=== PATIENT | male | born 1940 | race Caucasian/White ===

== ENCOUNTER 2018-06-08 16:13 | Emergency (ER) | payer MEDICARE, BC ==
[~2018-06-08] VITALS: Ht 162.6 cm; Wt 73.5 kg
--- NOTE | 2018-06-08 17:01 | NUR ---
Patient discharged to home in stable conditon. Written and verbal after care instructions given to patient. Patient verbalizes understanding of instructions.
== END 2018-06-08 17:02 | disposition home or self-care (01) ==
LOC: ER 16:16
DX: H61.23 Impacted cerumen, bilateral (principal); I10 Essential (primary) hypertension; Z95.5 Presence of coronary angioplasty implant and graft
CPT/HCPCS: A4217; A4663

== ENCOUNTER 2023-06-10 15:37 | Inpatient (IN) | payer MEDICARE, BC ==
[~2023-06-10] VITALS: Ht 167.6 cm; Wt 79.4 kg
[2023-06-10] MEDS ORDERED: CEFTRIAXONE 2 G in IV DEXTROSE 5% 100 ML IV ONE (16:00)
[2023-06-10] MEDS ORDERED: IV NORMAL SALINE 1000 ML BAG IV ONE (16:00)
[2023-06-10] MEDS ORDERED: VANCOMYCIN IV 1,000 MG in IV DEXTROSE 5% 250 ML IV ONE (16:00)
[2023-06-10] MEDS ORDERED: DEXAMETHASONE SOD PHOSPHATE 4 MG INJ IV ONE (16:00)
[2023-06-10 17:56] LABS: BASOPHILS % (AUTO) 0.3 % (0.0-2.0); EOSINOPHILS # (AUTO) 0.1 K/uL (0.0-0.7); EOSINOPHILS % (AUTO) 1.4 % (0.0-7.0); HEMOGLOBIN 14.5 g/dL (12.5-16.3); LYMPHOCYTES # (AUTO) 0.6 K/uL (0.8-4.8); LYMPHOCYTES % (AUTO) 7.6 % (20.5-51.5); MEAN CORPUSCULAR HGB CONC 34 g/dL (32.5-36.3); MEAN CORPUSCULAR VOLUME 89.4 fL (73.0-96.2); MONOCYTES # (AUTO) 0.5 K/uL (0.1-1.30); MONOCYTES % (AUTO) 5.9 % (0.0-11.0); NEUTROPHILS % (AUTO) 84.8 % (38.5-71.5); PLATELET COUNT (AUTO) 172 K/uL (152-348); RED BLOOD CELL COUNT(AUTO) 4.82 MIL/uL (4.06-5.63); RED CELL DISTRIBUTION WIDTH 13.3 % (12.1-16.2); WHITE BLOOD COUNT (AUTO) 8.2 K/uL (3.6-10.2)
[2023-06-10 18:10] LABS: DIFFERENTIAL COMMENT 1
[2023-06-10 18:16] LABS: CALCIUM 9.2 mg/dL (8.5-10.1); CARBON DIOXIDE 25 mmol/L (21-32); CHLORIDE 103 mmol/L (98-107); ETHANOL < 3 MG/DL (0-10); GLUCOSE 121 mg/dL (74-106); POTASSIUM 4.3 mmol/L (3.5-5.1); SODIUM SERUM 137 mmol/L (136-145); UREA NITROGEN, BLOOD 22 mg/dL (7-18)
[2023-06-10 18:23] LABS: AMMONIA < 10 umol/L (11-32)
[2023-06-10 18:33] LABS: ALANINE AMINOTRANSFERASE 25 U/L (16-63); ALBUMIN 3.6 g/dL (3.4-5.0); ALKALINE PHOSPHATASE 92 U/L (50-136); ASPARTATE AMINOTRANSFERASE 14 U/L (15-37); BILIRUBIN,DIRECT 0.2 mg/dL (0.0-0.2); BILIRUBIN,TOTAL 0.5 mg/dL (0.2-1.0); TOTAL PROTEIN, SERUM 7.2 g/dL (6.4-8.2)
[2023-06-10 18:40] LABS: ACETAMINOPHEN < 2.0 ug/mL (10-30)
[2023-06-10] MEDS ORDERED: LIDOCAINE 2%-EPI 1:100,000 20 ML VIAL ONE ×2 (19:44→22:52)
[2023-06-10] MEDS ORDERED: AZITHROMYCIN IV 500 MG in IV DEXTROSE 5% 250 ML IV ONE (19:45)
[2023-06-10] MEDS ORDERED: LIDOCAINE 2%-EPI 1:100,000 20 ML VIAL IJ ONE ×2 (19:45→23:00)
[2023-06-10] MEDS ORDERED: IV LACTATED RINGERS SOLUTION 1,000 ML IV ONE (21:45)
[2023-06-10] MEDS ORDERED: CEFTRIAXONE /D5W 50ML IVPB **ER PYXIS IV ONE (21:49)
[2023-06-10] MEDS ORDERED: REMEDY ESSENTIAL ZINC PASTE 113 GM TP PRN (22:30)
[2023-06-10] MEDS ORDERED: ONDANSETRON 4 MG/2 ML VIAL IV PRN (22:30)
[2023-06-10] MEDS ORDERED: MAGNESIUM HYDROXIDE 30 ML LIQUID UDC PO PRN (22:30)
[2023-06-10] MEDS ORDERED: IV NS 1000 ML 1,000 ML IV PRN (22:30)
[2023-06-11 00:36] LABS: CSF PROTEIN 55 mg/dL (15-45)
[2023-06-11 00:40] LABS: CSF GLUCOSE 99 mg/dL (40-70)
[2023-06-11 00:53] LABS: CSF APPEARANCE CLEAR (CLEAR); CSF COLOR COLORLESS (COLORLESS); CSF TUBE NUMBER 1
[2023-06-11] MEDS ORDERED: ACETAMINOPHEN ES 500 MG TABLET ONE (02:16)
[2023-06-11] MEDS ORDERED: CIPROFLOXACIN HCL 250 MG TABLET ONE ×3 (02:17→02:28)
[2023-06-11 02:27] LABS: CSF WHITE BLOOD CELL COUNT 23 /cumm (0-5)
[2023-06-11] MEDS ORDERED: VANCOMYCIN IV 1,000 MG in IV DEXTROSE 5% 250 ML IV ONE (02:30)
[2023-06-11] MEDS ORDERED: ACYCLOVIR IV ONE (02:45)
[2023-06-11] MEDS ORDERED: DEXTROSE 5% IV ONE (02:45)
[2023-06-11] MEDS ORDERED: ACYCLOVIR 500 MG VIAL IV ONE (02:46)
[2023-06-11] MEDS ORDERED: VANCOMYCIN IV 200 ML ONE (03:46)
[2023-06-11 07:05] LABS: BASOPHILS % (AUTO) 0.4 % (0.0-2.0); EOSINOPHILS % (AUTO) 0.1 % (0.0-7.0); HEMATOCRIT 39.4 % (36.7-47.1); HEMOGLOBIN 13.1 g/dL (12.5-16.3); LYMPHOCYTES # (AUTO) 0.7 K/uL (0.8-4.8); LYMPHOCYTES % (AUTO) 7.7 % (20.5-51.5); MEAN CORPUSCULAR HGB CONC 33 g/dL (32.5-36.3); MEAN CORPUSCULAR VOLUME 90.2 fL (73.0-96.2); MONOCYTES # (AUTO) 0.6 K/uL (0.1-1.30); MONOCYTES % (AUTO) 7.6 % (0.0-11.0); NEUTROPHILS # (AUTO) 7.2 K/uL (1.8-8.9); NEUTROPHILS % (AUTO) 84.2 % (38.5-71.5); PLATELET COUNT (AUTO) 164 K/uL (152-348); RED BLOOD CELL COUNT(AUTO) 4.37 MIL/uL (4.06-5.63); RED CELL DISTRIBUTION WIDTH 13.6 % (12.1-16.2); WHITE BLOOD COUNT (AUTO) 8.5 K/uL (3.6-10.2)
[2023-06-11 07:18] LABS: DIFFERENTIAL COMMENT 1
[2023-06-11 07:21] LABS: CALCIUM 8.4 mg/dL (8.5-10.1); CARBON DIOXIDE 25 mmol/L (21-32); CHLORIDE 102 mmol/L (98-107); CREATININE 1.4 mg/dL (0.6-1.3); GLUCOSE 192 mg/dL (74-106); MAGNESIUM 1.7 mg/dL (1.8-2.4); PHOSPHOROUS 4.6 mg/dL (2.5-4.9); POTASSIUM 4.1 mmol/L (3.5-5.1); SODIUM SERUM 137 mmol/L (136-145); UREA NITROGEN, BLOOD 24 mg/dL (7-18)
[2023-06-11 08:00] VITALS: BP_SYST 135; BP_SYST 157; BP_DIAS 57; BP_DIAS 78; TEMP 100; TEMP 99.2
[2023-06-11] MEDS ORDERED: MAGNESIUM SULFATE/D5W 100 ML IV SCH (10:18)
[2023-06-11] MEDS: PANTOPRAZOLE SODIUM 40 MG VIAL IV SCH (10:33)
[2023-06-11] MEDS: CEFTRIAXONE 1 G in IV DEXTROSE 5% 50 ML IV SCH (10:34)
[2023-06-11 12:00] VITALS: BP 143/69; TEMP 100; TEMP 99.3
[2023-06-11 12:39] LABS: THYROID STIMULATING HORMONE 0.579 mIU/mL (0.358-3.740)
[2023-06-11 13:42] LABS: *BILIRUBIN,URIN NEGATIVE (NEGATIVE); *CLARITY,URINE CLEAR (CLEAR); *COLOR,URINE YELLOW (YELLOW); *KETONES,URINE NEGATIVE (NEGATIVE); *PROTEIN,URINE 1+ (NEGATIVE); *UROBILINOGEN,URINE 0.2 E.U./dl (NORMAL); LEUKOCYTE ESTERASE ,URINE NEGATIVE (NEGATIVE); NITRITE, URINE NEGATIVE (NEGATIVE); PH,URINE 5.5 (5.0-8.0); UGLUCOSE NEGATIVE (NEGATIVE)
[2023-06-11 13:45] LABS: *BLOOD, URINE TRACE (NEGATIVE)
[2023-06-11] MEDS ORDERED: ACYCLOVIR IV 500 MG in IV DEXTROSE 5% 100 ML IV SCH (14:00)
[2023-06-11 14:13] LABS: BACTERIA,URINE FEW /HPF (NONE SEEN); COARSE GRANULAR CASTS,URINE 0-3 /LPF; RBC,URINE 0-3 /HPF (0-3); SQUAMOUS EPITHELIAL CELL,UR FEW /HPF (NONE SEEN); WBC,URINE 0-3 /HPF (0-3)
[2023-06-11] MEDS ORDERED: DULO30CA2 PO (15:28)
[2023-06-11 15:44] VITALS: BP 127/55; TEMP 99.7
[2023-06-11 16:15] VITALS: O2SAT 98
[2023-06-11] MEDS: ACETAMINOPHEN 325 MG TABLET PO PRN (16:41)
[2023-06-11] MEDS: ENOXAPARIN SODIUM 40 MG/0.4 ML DISP.SYRIN SQ SCH (16:48)
[2023-06-11 20:06] VITALS: BP 134/64; TEMP 99.2; O2SAT 95
[2023-06-11] MEDS: ACYCLOVIR IV 500 MG in IV DEXTROSE 5% 100 ML IV SCH (20:08)
[2023-06-11] MEDS: IV D5 1/2 NS 1000 ML 1,000 ML IV PRN (20:08)
[2023-06-11 22:22] VITALS: O2SAT 98
[2023-06-12] MEDS: ACETAMINOPHEN 325 MG TABLET PO PRN ×2 (00:09→20:06)
[2023-06-12 00:17] VITALS: BP 146/68; TEMP 103; O2SAT 93
[2023-06-12 02:00] VITALS: TEMP 99.1
[2023-06-12 04:05] VITALS: BP 129/69; TEMP 99.7; O2SAT 97
[2023-06-12 08:03] LABS: BASOPHILS % (AUTO) 0.5 % (0.0-2.0); EOSINOPHILS % (AUTO) 0.3 % (0.0-7.0); HEMATOCRIT 37.7 % (36.7-47.1); HEMOGLOBIN 12.9 g/dL (12.5-16.3); LYMPHOCYTES # (AUTO) 1.5 K/uL (0.8-4.8); LYMPHOCYTES % (AUTO) 22.8 % (20.5-51.5); MEAN CORPUSCULAR HEMOGLOBIN 30.7 uug (23.8-33.4); MEAN CORPUSCULAR HGB CONC 34 g/dL (32.5-36.3); MEAN CORPUSCULAR VOLUME 89.4 fL (73.0-96.2); MONOCYTES # (AUTO) 0.8 K/uL (0.1-1.30); MONOCYTES % (AUTO) 12.7 % (0.0-11.0); NEUTROPHILS # (AUTO) 4.2 K/uL (1.8-8.9); NEUTROPHILS % (AUTO) 63.7 % (38.5-71.5); PLATELET COUNT (AUTO) 135 K/uL (152-348); RED BLOOD CELL COUNT(AUTO) 4.22 MIL/uL (4.06-5.63); RED CELL DISTRIBUTION WIDTH 13.6 % (12.1-16.2); WHITE BLOOD COUNT (AUTO) 6.6 K/uL (3.6-10.2)
[2023-06-12 08:39] LABS: ALANINE AMINOTRANSFERASE 35 U/L (16-63); ALBUMIN 2.9 g/dL (3.4-5.0); ALKALINE PHOSPHATASE 69 U/L (50-136); ASPARTATE AMINOTRANSFERASE 42 U/L (15-37); BILIRUBIN,TOTAL 0.3 mg/dL (0.2-1.0); CALCIUM 8.5 mg/dL (8.5-10.1); CARBON DIOXIDE 27 mmol/L (21-32); CHLORIDE 103 mmol/L (98-107); CREATININE 1.3 mg/dL (0.6-1.3); GLUCOSE 142 mg/dL (74-106); MAGNESIUM 2.4 mg/dL (1.8-2.4); NT-PRO BNP 248 pg/mL (0-125); PHOSPHOROUS 4.7 mg/dL (2.5-4.9); POTASSIUM 3.8 mmol/L (3.5-5.1); TOTAL PROTEIN, SERUM 6.2 g/dL (6.4-8.2); UREA NITROGEN, BLOOD 21 mg/dL (7-18)
[2023-06-12 08:50] LABS: SODIUM SERUM 139 mmol/L (136-145)
[2023-06-12 09:08] VITALS: BP 155/83; TEMP 99.2; O2SAT 94
[2023-06-12] MEDS: ACYCLOVIR IV 500 MG in IV DEXTROSE 5% 100 ML IV SCH ×2 (10:12→20:07)
[2023-06-12] MEDS: PANTOPRAZOLE SODIUM 40 MG VIAL IV SCH (10:12)
[2023-06-12] MEDS: DULOXETINE 30 MG CAPSULE.DR PO SCH (10:12)
[2023-06-12] MEDS: ENOXAPARIN SODIUM 40 MG/0.4 ML DISP.SYRIN SQ SCH (10:14)
[2023-06-12] MEDS: CEFTRIAXONE 1 G in IV DEXTROSE 5% 50 ML IV SCH (11:38)
[2023-06-12] MEDS: IV D5 1/2 NS 1000 ML 1,000 ML IV PRN (15:01)
[2023-06-12 20:00] VITALS: BP 145/65; TEMP 99; O2SAT 94
[2023-06-12] MEDS ORDERED: TOBRAMYCIN 0.3% OPHT DROP 5 ML BOTTLE ONE (23:17)
[2023-06-12] MEDS: TOBRAMYCIN 0.3% OPHT DROP 5 ML BOTTLE LEFTEYE SCH (23:26)
[2023-06-13] VITALS: BP 144/70; TEMP 98.5; O2SAT 94
[2023-06-13] MEDS: TOBRAMYCIN 0.3% OPHT DROP 5 ML BOTTLE LEFTEYE SCH ×3 (06:00→22:00)
[2023-06-13] MEDS: PANTOPRAZOLE SODIUM 40 MG TABLET.DR PO SCH (06:52)
[2023-06-13] MEDS: DULOXETINE 30 MG CAPSULE.DR PO SCH (08:38)
[2023-06-13] MEDS: ENOXAPARIN SODIUM 40 MG/0.4 ML DISP.SYRIN SQ SCH (08:40)
[2023-06-13] MEDS: ACYCLOVIR IV 500 MG in IV DEXTROSE 5% 100 ML IV SCH ×2 (09:07→21:15)
[2023-06-13 11:28] LABS: BASOPHILS % (AUTO) 0.5 % (0.0-2.0); EOSINOPHILS % (AUTO) 0.6 % (0.0-7.0); HEMATOCRIT 37.9 % (36.7-47.1); HEMOGLOBIN 12.7 g/dL (12.5-16.3); LYMPHOCYTES # (AUTO) 1.1 K/uL (0.8-4.8); LYMPHOCYTES % (AUTO) 22.8 % (20.5-51.5); MEAN CORPUSCULAR HGB CONC 34 g/dL (32.5-36.3); MEAN CORPUSCULAR VOLUME 89.7 fL (73.0-96.2); MONOCYTES # (AUTO) 0.5 K/uL (0.1-1.30); MONOCYTES % (AUTO) 10.9 % (0.0-11.0); NEUTROPHILS # (AUTO) 3.3 K/uL (1.8-8.9); NEUTROPHILS % (AUTO) 65.2 % (38.5-71.5); PLATELET COUNT (AUTO) 131 K/uL (152-348); RED BLOOD CELL COUNT(AUTO) 4.23 MIL/uL (4.06-5.63); RED CELL DISTRIBUTION WIDTH 13.5 % (12.1-16.2)
[2023-06-13 11:42] LABS: ALANINE AMINOTRANSFERASE 33 U/L (16-63); ALBUMIN 2.8 g/dL (3.4-5.0); ALKALINE PHOSPHATASE 71 U/L (50-136); ASPARTATE AMINOTRANSFERASE 40 U/L (15-37); BILIRUBIN,TOTAL 0.2 mg/dL (0.2-1.0); CALCIUM 8.3 mg/dL (8.5-10.1); CARBON DIOXIDE 28 mmol/L (21-32); CHLORIDE 103 mmol/L (98-107); CREATININE 1.1 mg/dL (0.6-1.3); GLUCOSE 133 mg/dL (74-106); POTASSIUM 3.8 mmol/L (3.5-5.1); SODIUM SERUM 137 mmol/L (136-145); TOTAL PROTEIN, SERUM 6.2 g/dL (6.4-8.2); UREA NITROGEN, BLOOD 17 mg/dL (7-18)
[2023-06-13 12:00] LABS: DIFFERENTIAL COMMENT 1
[2023-06-13 12:08] LABS: PHOSPHOROUS 2.6 mg/dL (2.5-4.9)
[2023-06-13 12:22] VITALS: BP 133/62; TEMP 98.5; O2SAT 98
[2023-06-13] MEDS: CEFTRIAXONE 1 G in IV DEXTROSE 5% 50 ML IV SCH (12:28)
[2023-06-13 13:06] LABS: *HSV 1/2 PCR 1DNA CSF Negative (Negative); *HSV 1/2 PCR 2DNA CSF Negative (Negative)
[2023-06-13 16:03] VITALS: BP 127/66; TEMP 98.2; O2SAT 98
[2023-06-13 18:09] LABS: CRYPTOCOCCUS AG CSF Negative (Negative)
[2023-06-13] MEDS ORDERED: diphenhydrAMINE 50 MG CAPSULE PO ONE (23:30)
[2023-06-14 00:47] VITALS: BP 158/67; TEMP 98; O2SAT 95
[2023-06-14 04:00] VITALS: BP 156/65; TEMP 98.4; O2SAT 95
[2023-06-14] MEDS: PANTOPRAZOLE SODIUM 40 MG TABLET.DR PO SCH (06:52)
[2023-06-14] MEDS: TOBRAMYCIN 0.3% OPHT DROP 5 ML BOTTLE LEFTEYE SCH ×2 (06:52→16:04)
[2023-06-14] MEDS: ACYCLOVIR IV 500 MG in IV DEXTROSE 5% 100 ML IV SCH (08:58)
[2023-06-14] MEDS: ENOXAPARIN SODIUM 40 MG/0.4 ML DISP.SYRIN SQ SCH (08:58)
[2023-06-14 08:59] LABS: BASOPHILS % (AUTO) 0.6 % (0.0-2.0); EOSINOPHILS # (AUTO) 0.1 K/uL (0.0-0.7); EOSINOPHILS % (AUTO) 1.8 % (0.0-7.0); HEMATOCRIT 37.7 % (36.7-47.1); HEMOGLOBIN 12.8 g/dL (12.5-16.3); LYMPHOCYTES # (AUTO) 1.4 K/uL (0.8-4.8); LYMPHOCYTES % (AUTO) 32.9 % (20.5-51.5); MEAN CORPUSCULAR HEMOGLOBIN 30.2 uug (23.8-33.4); MEAN CORPUSCULAR HGB CONC 34 g/dL (32.5-36.3); MEAN CORPUSCULAR VOLUME 89.2 fL (73.0-96.2); MONOCYTES # (AUTO) 0.5 K/uL (0.1-1.30); MONOCYTES % (AUTO) 11.2 % (0.0-11.0); NEUTROPHILS # (AUTO) 2.2 K/uL (1.8-8.9); NEUTROPHILS % (AUTO) 53.5 % (38.5-71.5); PLATELET COUNT (AUTO) 144 K/uL (152-348); RED BLOOD CELL COUNT(AUTO) 4.23 MIL/uL (4.06-5.63); RED CELL DISTRIBUTION WIDTH 13.4 % (12.1-16.2); WHITE BLOOD COUNT (AUTO) 4.2 K/uL (3.6-10.2)
[2023-06-14 09:02] LABS: DIFFERENTIAL COMMENT 1
[2023-06-14 09:14] LABS: ALANINE AMINOTRANSFERASE 37 U/L (16-63); ALKALINE PHOSPHATASE 79 U/L (50-136); ASPARTATE AMINOTRANSFERASE 39 U/L (15-37); BILIRUBIN,TOTAL 0.5 mg/dL (0.2-1.0); CALCIUM 8.5 mg/dL (8.5-10.1); CARBON DIOXIDE 26 mmol/L (21-32); CHLORIDE 102 mmol/L (98-107); CREATININE 1.1 mg/dL (0.6-1.3); GLUCOSE 104 mg/dL (74-106); POTASSIUM 3.6 mmol/L (3.5-5.1); SODIUM SERUM 136 mmol/L (136-145); TOTAL PROTEIN, SERUM 6.5 g/dL (6.4-8.2); UREA NITROGEN, BLOOD 15 mg/dL (7-18)
[2023-06-14] MEDS: CEFTRIAXONE 1 G in IV DEXTROSE 5% 50 ML IV SCH (11:06)
[2023-06-14] MEDS ORDERED: AMLODIPINE 5 MG TABLET PO SCH (11:15)
[2023-06-14] MEDS ORDERED: PANT40TA49 PO (11:41)
[2023-06-14] MEDS ORDERED: ACYC400T19 PO (11:41)
[2023-06-14] MEDS ORDERED: ASPI-1101 PO (11:41)
[2023-06-14] MEDS ORDERED: AMLO-212 PO (11:41)
[2023-06-14 12:00] VITALS: BP 126/51
[2023-06-14] MEDS ORDERED: DULOXETINE 30 MG CAPSULE.DR PO SCH (21:00)
== END 2023-06-14 04:00 | disposition home or self-care (01) | DRG 871 ==
LOC: ER 15:39 → MEDSURG3 22:00 → TELE3 06-11 16:03 → MEDSURG3 06-13 19:34
PROVIDERS: ADMIT Nurse Practitioner Acute Care; ATTEND Internal Medicine
PROC: 009U3ZX Drainage of Spinal Canal, Percutaneous Approach, Diagnostic (ICD-10-PCS; principal; 2023-06-11)
DX: A41.89 Other specified sepsis (principal); G92.8 Other toxic encephalopathy; N17.0 Acute kidney failure with tubular necrosis; A87.9 Viral meningitis, unspecified; F03.93 Unspecified dementia, unspecified severity, with mood disturbance; L03.311 Cellulitis of abdominal wall; D68.59 Other primary thrombophilia; I25.10 Atherosclerotic heart disease of native coronary artery without angina pectoris; Z95.5 Presence of coronary angioplasty implant and graft; Z87.440 Personal history of urinary (tract) infections; Z90.79 Acquired absence of other genital organ(s); Z85.46 Personal history of malignant neoplasm of prostate; Z86.2 Personal history of diseases of the blood and blood-forming organs and certain disorders involving the immune mechanism; E66.9 Obesity, unspecified; Z68.28 Body mass index [BMI] 28.0-28.9, adult; K40.90 Unilateral inguinal hernia, without obstruction or gangrene, not specified as recurrent; N32.3 Diverticulum of bladder; I70.8 Atherosclerosis of other arteries; K44.9 Diaphragmatic hernia without obstruction or gangrene; K43.9 Ventral hernia without obstruction or gangrene; M50.30 Other cervical disc degeneration, unspecified cervical region; M51.36 Other intervertebral disc degeneration, lumbar region; N28.1 Cyst of kidney, acquired; I45.9 Conduction disorder, unspecified; Z79.899 Other long term (current) drug therapy
CPT/HCPCS: 80076; 80048; 82140; 84443; 85025; 85730; 87426; 87040 ×2; 84484; 93005; 71045; 70450; 83605; 80299; 80320; 80307; J0696 ×2; J7120; 36415; 83735; 84100; 84157; 89051; A4606; A4663; A9150; C1758; C9113; G0378; G0480; J0133; J1650; J3370; J3475; Q0163